=== PATIENT | female | born 1985 | race Caucasian/White ===

== ENCOUNTER 2017-07-05 23:09 | Inpatient (IN) | payer OTHER ==
[2017-07-05] MEDS ORDERED: METHYLERGONOVINE MALEATE 0.2 MG/1 ML AMP IM PRN (23:40)
[2017-07-05] MEDS ORDERED: WITCH HAZEL 50% (TUCKS) 40 PAD/JAR PAD TP PRN (23:54)
[2017-07-05] MEDS ORDERED: BENZOCAINE 20% 57 GM BOTTLE TP PRN (23:54)
[2017-07-05] MEDS ORDERED: oxyCODONE HCL 5 MG TABLET PO PRN (23:54)
[2017-07-05] MEDS ORDERED: BISACODYL 10 MG SUPP.RECT RC PRN (23:54)
[2017-07-05] MEDS ORDERED: BENZOCAINE 28 GM HEMORRHOIDAL OINTMENT TP PRN (23:54)
--- NOTE | 2017-07-06 00:04 | HP ---
Past Medical History - Primary Care Physician PCP:: Leta Moreno - Admission Chief Complaint: 32 yrs s/p , home delivery at 10.35 PM , SROM at 10.30 PM. onset LP at 12.00 noon q 10 min & strong since 9.00pm 07/05/17 . pt called 911, but before ambulance arrival she delivered at home on floor as directed by 911. History of Present Illness: care at office in [facility] affiliated with [facility] . no problem during care . denies h/o infection History Source: Patient - Past Medical History FRAME BUILDER: No: CVA, Migraine, Seizure Cardiovascular: No: HTN, Mitral Stenosis, Murmur Pulmonary: No: Asthma Gastrointestinal: No: Constipation, Gastritis Hepatobiliary: No: Hepatitis B Renal/: No: UTI ...: 2 ...Para: 1 ...Term: 1 ( 11/2012 37 weeks gestation ) ... Weeks Gestation by Dates: 37.5 ...EDC by Dates: 07/21/17 ...EDC by Sono: 07/21/17 (37.5 weeks ) Heme/Onc: No: Anemia Infectious Disease: No: STD's Psych: No: Addictions, Anxiety, Bipolar, Depression, Panic, Schizophrenia - Past Surgical History Past Surgical History: Yes: None Hx Myomectomy: No Hx Transabdominal Cerclage: No - Smoking History Have you smoked in the past 12 months: No - Alcohol/Substance Use Hx Alcohol Use: No History of Substance Use: reports: None Home Medications - Allergies Allergies/Adverse Reactions: Allergies Allergy/AdvReac Type Severity Reaction Status Date / Time No Known Allergies Allergy Verified 07/05/17 23:51 Physical Exam - Maternity Vital Signs: Selected Entries 07/05/17 07/05/17 07/05/17 23:40 23:51 23:52 Pulse Rate 87 85 Blood Pressure 115/78 Weight 165 lb Constitutional: Yes: Well Nourished, No Distress Eyes: Yes: WNL HENT: Yes: WNL Neck: Yes: WNL Cardiovascular: Yes: WNL Lungs: Clear to auscultation Breast(s): Yes: WNL. No: Mass - Abdominal Exam/OB Fundal Height: 20 (s/p delivary fetus at home , placenta in utero ) - Vaginal Exam/OB Vaginal Bleediing: Yes (vagina intact , no laceration Lt labium inner small abrasion, does not reuire stich . perineum intact), Moderate Speculum Exam: No - Physical Exam Musculoskeletal: Yes: WNL Extremities: Yes: WNL. No: Calf Tenderness Edema: No Integumentary: Yes: WNL Deep Tendon Reflex Grade: Normal +2 ...Motor Strength: WNL Psychiatric: Yes: WNL, Alert, Oriented - Labs Lab Results: Laboratory Tests 07/06/17 07/06/17 07/06/17 01:25 01:25 01:25 WBC 19.0 H Hgb 13.7 Hct 40.8 Plt Count 227 Neutrophils % 87.5 H PT with INR 10.30 INR 0.91 PTT (Actin FS) 26.8 L Sodium 138 Potassium 3.8 Chloride 104 Carbon Dioxide 20 L BUN 11 Creatinine 0.6 Random Glucose 146 H Calcium 8.5 Methadone Screen Barbiturate Screen Ur Amphetamines Screen MDMA (Ecstasy) Screen Benzodiazepines Screen Cocaine Screen U Marijuana (THC) Screen HIV 1&2 Antibody Screen HIV P24 Antigen 07/06/17 07/06/17 07/06/17 01:25 01:25 05:00 WBC Hgb Hct Plt Count Neutrophils % PT with INR INR PTT (Actin FS) Sodium Potassium Chloride Carbon Dioxide BUN Creatinine Random Glucose Calcium Methadone Screen Negative Barbiturate Screen Negative Ur Amphetamines Screen Negative MDMA (Ecstasy) Screen Negative Benzodiazepines Screen Negative Cocaine Screen Negative U Marijuana (THC) Screen Negative HIV 1&2 Antibody Screen Preliminary positive Preliminary positive HIV P24 Antigen Negative Negative Problem List - Problems (1) Retained placenta Code(s): O73.0 - RETAINED PLACENTA WITHOUT HEMORRHAGE (2) with care elsewhere Code(s): Z34.90 - ENCNTR FOR SUPRVSN OF NORMAL , UNSP, UNSP TRIMESTER (3) with care elsewhere, antepartum Code(s): Z34.90 - ENCNTR FOR SUPRVSN OF NORMAL , UNSP, UNSP TRIMESTER Assessment/Plan 32 yrs , s/p vaginal delivery of fetus at 10.35 PM on 07/05/17. Placenta not delivered yet Baby girl on arrival 11.09 pm was assigned score 9/9 , seen by Dr Jimmy Byers . 11.33Pm Placenta delivered completely with membranes . MEU done ut ,cx intact EBL 50 ml noted along with placenta delivery . prophylactic Im Methergine given. plan pp care
--- NOTE | 2017-07-06 00:25 | PN ---
Delivery - Delivery Vaginal Delivery: No Problems (Home delivery of fetus), Spontaneous Episiotomy/Laceration: None EBL (cc): 50 (witnessed ebl in L&D ) Delivery, Single - Stages of Labor Date 1st Stage Initiatied: 07/05/17 Time 1st Stage Initiated: 12:00 Date of Delivery: 07/05/17 Time of Delivery: 22:35 (delivered at Home ) Date Placenta Delivered: 07/05/17 Time Placenta Delivered: 23:33 (delivered in hosp by Dr mckenzie ) Placenta: Yes: Spontaneous, Uterine Exploration - Condition of Compliance Technician/Senior Technical Writer Present: Yes Name: Jimmy Byers Infant Gender: Female Weight: 5 lb 4 oz - 1 Minute Total Score: 9 5 Minutes Total Score: 9 Remarks - Remarks Remarks: 31 yrs , s/p home delivery of fetus at home came by ambulance with placenta not delivered yet Immediate pp course uneventful. care at [facility] affiliated office
[2017-07-06] MEDS: IBUPROFEN 600 MG TABLET (FP) PO PRN ×5 (00:39→20:44)
[2017-07-06 01:07] VITALS: BMI 26.6
[2017-07-06 01:44] LABS: BASO % 0.1 % (0-2.0); HEMATOCRIT 40.8 % (32.4-45.2); HEMOGLOBIN 13.7 GM/dL (10.7-15.3); LYMPH % 8.9 % (8-40); MCH 30.8 pg (25.7-33.7); MCHC 33.6 g/dl (32.0-36.0); MEAN CELL VOLUME 91.6 fl (80-96); MEAN PLT VOLUME 8.9 fl (7.5-11.1); MONO % 3.5 % (3.8-10.2); NEUT % 87.5 % (42.8-82.8); PLATELET COUNT 227 K/MM3 (134-434); RBC 4.45 M/mm3 (3.60-5.2); RDW 12.7 % (11.6-15.6)
[2017-07-06 02:06] LABS: INR 0.91 (0.82-1.09); PROTHROMBIN TIME (PATIENT) 10.3 SEC (9.98-11.88)
[2017-07-06 02:07] LABS: ANION GAP 14 (8-16); BLOOD UREA NITROGEN 11 mg/dL (7-18); CALCIUM 8.5 mg/dL (8.5-10.1); CHLORIDE 104 mmol/L (98-107); CO2 20 mmol/L (21-32); CREATININE 0.6 mg/dL (0.55-1.02); GLUCOSE,RANDOM 146 mg/dL (74-106); POTASSIUM 3.8 mmol/L (3.5-5.1); SODIUM 138 mmol/L (136-145)
[2017-07-06 02:09] LABS: ACTIVATED PTT 26.8 SECONDS (26.9-34.4)
[2017-07-06 06:46] LABS: COCAINE, UR NEGATIVE ng/ml (CUTOFF=300); METHADONE, UR NEGATIVE ng/ml (CUTOFF=300); OPIATES, URI NEGATIVE ng/ml (CUTOFF=300); PHENCYCLIDINE,URINE NEGATIVE ng/ml (CUTOFF=25); URINE AMPHETAMINES NEGATIVE ng/ml (CUTOFF=500); URINE BARBITURATES NEGATIVE ng/ml (CUTOFF=200); URINE BENZODIAZEPINES NEGATIVE ng/ml (CUTOFF=200)
[2017-07-06] MEDS: FERROUS SO4 325 MG TABLET (FP) PO SCH ×2 (08:53→19:28)
[2017-07-06] MEDS ORDERED: TUBERCULIN PPD 5 TU/0.1ML SYRINGE (IN PATIENT USE ONLY) ID ONE (09:00)
[2017-07-06 09:02] LABS: HEMATOCRIT 39.6 % (32.4-45.2); HEMOGLOBIN 12.7 GM/dL (10.7-15.3); MCH 29.9 pg (25.7-33.7); MCHC 32.1 g/dl (32.0-36.0); MEAN PLT VOLUME 8.5 fl (7.5-11.1); PLATELET COUNT 216 K/MM3 (134-434); RBC 4.26 M/mm3 (3.60-5.2); RDW 12.8 % (11.6-15.6); WHITE BLOOD COUNT 22.2 K/mm3 (4.0-10.0)
[2017-07-06] MEDS: PRENATAL VITAMINS W/ FOLIC ACID TABLET (FP) PO SCH (10:00)
[2017-07-06 10:55] LABS: ACANTHOCYTES 0; ANISOCYTOSIS 0; HELMET CELLS 0; HOWELL-JOLLY BODIES 0; MACROCYTOSIS 0; OVALOCYTE 0; SICKELED CELLS 0; TARGET CELLS 0; TEAR DROP CELLS 0; TOXIC GRANULATION 0
[2017-07-06 10:59] LABS: PLATELET ESTIMATE ADEQUATE
--- NOTE | 2017-07-06 11:57 | PN ---
Post Progress Note - Subjective Subjective: no complains Post Day: 1 Type of Delivery: Vital Signs: Vital Signs Temperature 97.9 F 07/06/17 06:00 Pulse Rate 85 07/06/17 06:00 Respiratory Rate 18 07/06/17 06:00 Blood Pressure 111/76 07/06/17 06:00 O2 Sat by Pulse Oximetry (%) 100 07/06/17 00:25 Breast Exam: Yes: Soft, Other (Bf ). No: Engorged Uterus: Yes: Fundus Firm, Fundus below umbilicus, Non-tender Lochia: Yes: Rubra Lochia, amount: Moderate Extremities: Yes: Calves non-tender Perineum: Yes: Intact Activity: Ambulating - Labs Labs: CBC WBC 22.2 K/mm3 (4.0-10.0) H 07/06/17 08:45 RBC 4.26 M/mm3 (3.60-5.2) 07/06/17 08:45 Hgb 12.7 GM/dL (10.7-15.3) 07/06/17 08:45 Hct 39.6 % (32.4-45.2) 07/06/17 08:45 MCV 93.0 fl (80-96) 07/06/17 08:45 MCH 29.9 pg (25.7-33.7) 07/06/17 08:45 MCHC 32.1 g/dl (32.0-36.0) 07/06/17 08:45 RDW 12.8 % (11.6-15.6) 07/06/17 08:45 Plt Count 216 K/MM3 (134-434) 07/06/17 08:45 MPV 8.5 fl (7.5-11.1) 07/06/17 08:45 Neutrophils % No Result Required. 07/06/17 08:45 Neutrophils % (Manual) 62.0 % (42.8-82.8) 07/06/17 08:45 Band Neutrophils % 0.0 % 07/06/17 08:45 Lymphocytes % No Result Required. 07/06/17 08:45 Lymphocytes % (Manual) 19.0 % (8-40) 07/06/17 08:45 Monocytes % 3.5 % (3.8-10.2) L 07/06/17 01:25 Monocytes % (Manual) 6 % (3.8-10.2) 07/06/17 08:45 Eosinophils % 0.0 % (0-4.5) 07/06/17 01:25 Eosinophils % (Manual) 1.0 % (0-4.5) 07/06/17 08:45 Basophils % 0.1 % (0-2.0) 07/06/17 01:25 Basophils % (Manual) 0.0 % (0-2.0) 07/06/17 08:45 Myelocytes % (Man) 0 % (0-2) 07/06/17 08:45 Metamyelocytes 0 % (0-2) 07/06/17 08:45 Hypochromia 0 07/06/17 08:45 Toxic Granulation 0 07/06/17 08:45 Dohle Bodies 0 07/06/17 08:45 Platelet Estimate Adequate 07/06/17 08:45 Polychromasia 0 07/06/17 08:45 Poikilocytosis 0 07/06/17 08:45 Basophilic Stippling 0 07/06/17 08:45 Anisocytosis 0 07/06/17 08:45 Microcytosis 0 07/06/17 08:45 Macrocytosis 0 07/06/17 08:45 Spherocytes 0 07/06/17 08:45 Sickle Cells 0 07/06/17 08:45 Target Cells 0 07/06/17 08:45 Tear Drop Cells 0 07/06/17 08:45 Ovalocytes 0 07/06/17 08:45 Stomatocytes 0 07/06/17 08:45 Helmet Cells 0 07/06/17 08:45 [place] Bodies 0 07/06/17 08:45 [place] Rings 0 07/06/17 08:45 [place] Cells 0 07/06/17 08:45 Acanthocytes (Spur) 0 07/06/17 08:45 Fragmented RBCs 0 07/06/17 08:45 Schistocytes 0 07/06/17 08:45 Laboratory Tests 07/06/17 07/06/17 01:25 05:00 HIV 1&2 Antibody Screen Preliminary positive HIV P24 Antigen Negative Negative Problem List - Problems (1) Retained placenta Code(s): O73.0 - RETAINED PLACENTA WITHOUT HEMORRHAGE (2) with care elsewhere Code(s): Z34.90 - ENCNTR FOR SUPRVSN OF NORMAL , UNSP, UNSP TRIMESTER (3) with care elsewhere, antepartum Code(s): Z34.90 - ENCNTR FOR SUPRVSN OF NORMAL , UNSP, UNSP TRIMESTER Assessment/Plan patient HIV testing 4 genration, Ab pos , antigen neg . Pt submitted her HIV testing from may & january are negattive I explained the patient, possiblity of false positive can be there , further speciific testing will be necessary , lab automatically will send to outside lab for confirmation, Results will not be aviilable until Fri or I will do ID consult.. Dr Byers informed me that she spoke with ID paediatrics at [facility] , recommendation is to treat baby until final results come back
--- NOTE | 2017-07-06 13:40 | PN ---
Progress Note (short form) - Note Progress Note: asked to see for positive prelim hiv test dr luna notes reviewed 32 year old femaleotherwise healthy, brought to hospital after delivery of baby at home prelim 4th gen hiv test here positive she has a negative test 05/16 in the [place] with her ob monagamous, no stds, no blood exposure, no substance use most lkely false positive but will have to wait for lab confirmation-suspect will take until Fri or no breast feeding _she is aware management of baby per peds
--- NOTE | 2017-07-06 14:13 | CONS ---
DATE OF CONSULTATION: DATE OF DICTATION: 07/06/2017 REQUESTED BY: Leta Moreno MD This is a 32-year-old woman who delivered her 2nd baby at home at 10:30 last night. She called 03-07-, but before the ambulance came, she delivered at home. Her care has been at [facility] with [facility]. She reports she has had a great without any problems. She has 1 child who is 4 years old. She was considered a drop-in at our hospital. She had blood work sent, including an HIV test, which came back preliminarily positive; this was a 4th generation test and I am asked to see her because of this result. She is aware of the result. She reports she has been monogamous with her spouse for 11 years. She was able to find her records from her OB and notes, May 16, a negative HIV 4th generation test as well as hepatitis B surface antigen negative in January. GC, chlamydia, RPR are all negative as well as group B strep screen. She reports she is monogamous. She has not received any blood transfusions. She does not care for any sick people. She is not in healthcare. She has had no exposures. There is no history of any substance use. PAST MEDICAL HISTORY: Notable for the delivery of her son in 2012. There is no history of any substance use. She is , she lives with her spouse. She has no known drug allergies. PHYSICAL EXAMINATION: Vital Signs: Her temperature is 97.9, pulse of 85, blood pressure 111/76, respiratory rate is 18. HEENT: She has no thrush. She has good dentition. Neck: She has no cervical adenopathy. Lungs: Clear. Heart: Regular rate and rhythm. Abdomen: Firm. Extremities: Without any edema. Her laboratories are notable for a white count of 22, hemoglobin 12.7, platelets of 216. BUN 11, creatinine 0.6. Toxicology screen is negative and the HIV antibody screen came back positive with a negative antigen. SUMMARY: This is a 32-year-old woman with, most likely, a false-positive human immunodeficiency virus test, as she has no risk factors, but further testing is necessary. I spoke with the laboratory and it will be sent out today. Unfortunately, I explained to the patient tomorrow is a holiday, so results will, most likely, not be back until Friday. The patient has been advised by me and by the toll line mechanic to avoid until the HIV results are back. Care of the baby is per the hydrographer. MJ VILLALOBOS M.D. [id number]
[2017-07-06] MEDS: ACETAMINOPHEN 325 MG TABLET (FP) PO PRN (20:44)
[2017-07-06] MEDS ORDERED: SENNOSIDES/DOCUSATE COMBO (SENNA PLUS) TABLET (UD) PO PRN (22:00)
[2017-07-07] MEDS: IBUPROFEN 600 MG TABLET (FP) PO PRN ×3 (04:32→13:11)
[2017-07-07 08:11] VITALS: BP 107/71; PULSE 90; TEMP 98.1
[2017-07-07] MEDS: FERROUS SO4 325 MG TABLET (FP) PO SCH (09:00)
[2017-07-07] MEDS: PRENATAL VITAMINS W/ FOLIC ACID TABLET (FP) PO SCH (09:00)
[2017-07-07] MEDS: ACETAMINOPHEN 325 MG TABLET (FP) PO PRN ×2 (09:04→13:12)
--- NOTE | 2017-07-07 10:09 | DS ---
Physical Exam-ENGLISH LANGUAGE ARTS TEACHER Vital Signs: Vital Signs Temperature 98.1 F 07/07/17 08:09 Pulse Rate 90 07/07/17 08:09 Respiratory Rate 18 07/07/17 08:09 Blood Pressure 107/71 07/07/17 08:09 O2 Sat by Pulse Oximetry (%) 100 07/06/17 00:25 Constitutional: Yes: Well Nourished Eyes: Yes: WNL HENT: Yes: WNL, Normocephalic Neck: Yes: WNL Cardiovascular: Yes: WNL, Regular Rate and Rhythm Respiratory: Yes: WNL, CTA Bilaterally Gastrointestinal: Yes: WNL, Normal Bowel Sounds, Soft ...Rectal Exam: Yes: WNL Renal/: Yes: WNL ....Post : Yes: Uterus firm, Uterus non-tender, Moderate lochia rubra ( perineum intact) Breast(s): Yes: WNL Musculoskeletal: Yes: WNL Extremities: Yes: WNL. No: Calf Tenderness Edema: Yes Integumentary: Yes: WNL Neurological: Yes: WNL ...Motor Strength: WNL Psychiatric: Yes: WNL Labs: CBC, BMP 07/06/17 08:45 07/06/17 01:25 Laboratory Tests 07/06/17 07/06/17 07/06/17 01:25 01:25 05:00 RPR Titer Nonreactive HIV 1&2 Antibody Screen Preliminary positive Preliminary positive HIV P24 Antigen Negative Negative Delivery - Delivery Vaginal Delivery: No Problems (Home delivery of fetus), Spontaneous Type of Anesthesia: None Episiotomy/Laceration: None EBL (cc): 50 (witnessed ebl in L&D ) Delivery, Single - Stages of Labor Date 1st Stage Initiatied: 07/05/17 Time 1st Stage Initiated: 12:00 Date of Delivery: 07/05/17 Time of Delivery: 22:35 (delivered at Home ) Time Placenta Delivered: 23:33 (delivered in hosp by Dr mckenzie ) Placenta: Yes: Spontaneous, Uterine Exploration - Condition of Residential Case Manager/Tank Cooper Present: Yes Name: Jimmy Byers Infant Gender: Female Weight: 5 lb 4 oz Total Hours ROM (Hrs/Mins): 5 minutes - 1 Minute Total Score: 9 5 Minutes Total Score: 9 Home Delivery on Admit Total Score: 9 - [place] Feeding Plan Initial Plan: Elected not to breastfeed exclusively throughout hospitalization Remarks - Remarks Remarks: 31 yrs , s/p home delivery of fetus at home came by ambulance with placenta not delivered yet Immediate pp course uneventful. care at [facility] affiliated office . post op course uneventful, HIV AB testing 4th genration prelimnary postive, Hiv antigen neg awaiting confirmatory test results , pending Dr Reeder ID consult done Infant is placed on Aniti viral meds for HIV pending test results, is not discharged . pt is given instructions for follow up Plan discharge today Discharge Summary Reason For Visit: HOME DELIVERY Current Active Problems with care elsewhere (Acute) with care elsewhere, antepartum (Acute) Retained placenta (Acute) Condition: Stable - Instructions Diet, Activity, Other Instructions: Post Instructions DIET: Continue good diet high in protein, calcium, and iron rich foods. Drink at least eight (8) glasses of water daily in addition to other fluids. ct Regular diet MEDICATIONS: Continue vitamins and iron as previously directed. Motrin and Tylenol may be taken for minor discomfort. ACTIVITY: Mild to moderate exercise may be started in two (2) weeks. Take frequent rest periods. Resume normal activity after six (6) week check up. WOUND CARE OF OPERATIVE SITE: Continue use of perineal bottle until vaginal discharge stops. Keep area clean. Shower daily. Keep abdominal wound dry. Report any drainage or redness to physician. Tub baths, tampons and douches are not permitted for [address] Breast feeding & or Bottle feeding BREAST CARE: (For those that are not breast feeding): If engorgement occurs: Wear tight fitting bra. Take Tylenol or Motrin for pain. Apply cold packs (ice in bags to each breast ) FAMILY PLANNING: There are many control alternatives to pursue and they should be discussed at your first office visit. You may resume sexual activity after your six (6) week check up. (Remember, breast feeding is not a contraceptive) NEXT PHYSICIAN APPOINTMENT: Be certain to call for a six (6) week appointment, unless otherwise directed. call your PMD fpr pp visit . or call [phone] [address] moreno in 4-6 weeks for pp visit at 2, [facility] . call [phone] for results of Confirmatory Test 07/10/[address] moreno or contact Nursing vat house supervisor [facility] or got to Emergency Dept if you have any of the following: Heavy vaginal bleeding Painful urination Leg pain Unusual odor noted to vaginal bleeding High fever Red streaking noted on breast Referrals: Magalis Reeder MD [Staff Physician] - Leta Moreno MD [Staff Physician] - Disposition: HOME - Home Medications Comprehensive Discharge Medication List: Ambulatory Orders Acetaminophen [Tylenol .Regular Strength -] 650 mg PO Q3H PRN tablet 07/06/17 Ibuprofen [Motrin -] 200 mg PO Q4H PRN tablet 07/06/17 Vitamins (Sjr) - 1 tab PO DAILY tablet 07/06/17
[2017-07-08 14:11] LABS: HBsAG SCREEN Negative (Negative)
[2017-07-09 06:11] LABS: RUBELLA IgG ANTIBODY < 0.90 index (Immune >0.99)
== END 2017-07-07 15:35 | disposition home or self-care (01) | DRG 776 ==
LOC: JLDR 23:09 → J3W 07-06 02:15
PROVIDERS: ADMIT Obstetrics & Gynecology; ATTEND Obstetrics & Gynecology
DX: O73.0 Retained placenta without hemorrhage (principal); Z3A.37 37 weeks gestation of pregnancy
CPT/HCPCS: 36415; 59409; 80048; 80307; 85025; 85610; 85730; 86593; 86762; 86850; 86900; 86901; 87340; 87389